=== PATIENT | female | born 1965 | race Caucasian/White ===

== ENCOUNTER → 2017-07-17 | Outpatient (CLI) | payer OTHER ==
[~2017-07-17] MED LIST: CHOL100014 PO; CHRO400T6 PO; FAMC125T PO; LISI-167 PO; MULT-516 PO; VILA10TA PO; VITAMIN C PO
== END | disposition home or self-care (01) ==
LOC: CFH 13:33
PROVIDERS: ATTEND Internal Medicine
DX: I25.10 Atherosclerotic heart disease of native coronary artery without angina pectoris (principal); J84.10 Pulmonary fibrosis, unspecified; Z82.49 Family history of ischemic heart disease and other diseases of the circulatory system
CPT/HCPCS: 75571

== ENCOUNTER → 2018-09-09 | Outpatient (CLI) | payer BC | END | disposition home or self-care (01) | LOC: CFH 11:06 | PROVIDERS: ATTEND Obstetrics & Gynecology Gynecology | DX: Z12.31 Encounter for screening mammogram for malignant neoplasm of breast (principal) | CPT/HCPCS: 77063; 77067 ==

== ENCOUNTER 2019-12-14 09:56 | Emergency (ER) | payer BC ==
[~2019-12-14] VITALS: Ht 167.6 cm; Wt 77.8 kg
[~2019-12-14 09:56] MED LIST changes: -FAMC125T PO; +FAMC125T3 PO
[2019-12-14] MEDS ORDERED: CEFTRIAXONE PMX 1GM/50ML 50 ML ONE (11:22)
[2019-12-14] MEDS ORDERED: SODIUM CHLORIDE FLUSH 10ML SYR IVF ONE (11:30)
[2019-12-14] MEDS ORDERED: CEFTRIAXONE PMX 1GM/50ML 50 ML IVPB ONE (11:30)
[2019-12-14 11:44] LABS: BASOPHILS # (AUTO) 0.04 x10^3/uL (0-0.1); BASOPHILS % (AUTO) 0 % (0-1); EOSINOPHILS # (AUTO) 0.12 x10^3/uL (0-0.4); EOSINOPHILS % (AUTO) 1 % (1-7); LYMPHOCYTES % (AUTO) 14 % (22-44); MD NO; MEAN CORPUSCULAR HEMOGLOBIN 30.8 pg (27.0-34.8); MEAN PLATELET VOLUME 8.6 fL (7.4-10.4); MONOCYTES # (AUTO) 0.84 x10^3/uL (0.2-0.8); MONOCYTES % (AUTO) 8 % (2-9); NEUTROPHILS # (AUTO) 8.69 x10^3/uL (1.8-6.8); NEUTROPHILS % (AUTO) 77 % (42-75); PLATELET COUNT 275 x10^3/uL (130-400); RED BLOOD COUNT 4.48 x10^6/uL (3.82-5.3); RED CELL DISTRIBUTION WIDTH 13.3 % (9.6-15.2)
[2019-12-14 11:46] LABS: ALANINE AMINOTRANSFERASE 29 U/L (12-78); ALBUMIN 3.1 g/dL (3.4-5.0); ANION GAP 6 mmol/L (5-15); CALCIUM 8.3 mg/dL (8.5-10.1); CHLORIDE 101 mmol/L (98-107); CREATININE 0.79 mg/dL (0.55-1.02)
[2019-12-14 11:48] LABS: ALKALINE PHOSPHATASE 79 U/L (45-117); BILIRUBIN,TOTAL 0.6 mg/dL (0.2-1.0); TOTAL PROTEIN 7.4 g/dL (6.4-8.2)
[2019-12-14] MEDS ORDERED: POTASSIUM CHLORIDE 20 MEQ TAB.ER.PRT ONE (12:25)
[2019-12-14] MEDS ORDERED: POTASSIUM CHLORIDE 20 MEQ TAB.ER.PRT PO ONE (12:30)
[2019-12-14 12:36] VITALS: BP 123/74
--- NOTE | 2019-12-14 12:36 | NUR ---
PT AMBUALTED TO BATHROOM
[2019-12-14 12:45] LABS: MICROSCOPIC INDICATED
--- NOTE | 2019-12-14 12:56 | NUR ---
PT TO CT AT THIS TIME
[2019-12-14] MEDS ORDERED: OMNIPAQUE 350 MG/ML, 100ML BOTTLE ONE (13:06)
--- NOTE | 2019-12-14 13:20 | NUR ---
PT EDUCATED ON PLAN OF CARE AT THIS TIME BY .
[2019-12-14] MEDS ORDERED: CEFOTETAN PMX 1GM/50ML 50 ML IV ONE (13:30)
[2019-12-14] MEDS ORDERED: BUPIVACAINE/PF-EPI 0.5% 1:200K ONE (13:42)
[2019-12-14] MEDS ORDERED: MIDAZOLAM 1 MG/ML, 2ML ONE (13:55)
[2019-12-14] MEDS ORDERED: FENTANYL PF 1000 MCG/20ML ONE (13:55)
[2019-12-14] MEDS ORDERED: FENTANYL PF 100 MCG/2ML ONE ×3 (13:56→15:42)
[2019-12-14] MEDS ORDERED: SUCCINYLCHOLINE 20 MG/ML, 10ML ONE ×2 (13:57)
[2019-12-14] MEDS ORDERED: PROPOFOL 10 MG/ML, 20ML ONE ×2 (13:58)
[2019-12-14] MEDS ORDERED: ROCURONIUM 10MG/ML,5ML ONE (13:59)
[2019-12-14] MEDS ORDERED: FENTANYL PF 100 MCG/2ML IV PRN (14:00)
[2019-12-14] MEDS ORDERED: ACETAMINOPHEN 325 MG TABLET PO PRN (14:00)
[2019-12-14] MEDS ORDERED: OXYcodone 5 MG/5 ML ORAL.SOL UDC PO PRN (14:00)
[2019-12-14] MEDS ORDERED: HYDROmorphone 1 MG/ML, 1ML INJ IVPush PRN (14:00)
[2019-12-14] MEDS ORDERED: PROMETHAZINE 25 MG/ML, 1ML IVPush PRN (14:00)
[2019-12-14] MEDS ORDERED: GLYCOPYRROLATE 0.2MG/1ML, 5ML ONE (14:22)
[2019-12-14] MEDS ORDERED: ONDANSETRON 2MG/ML, 2ML ONE (14:22)
[2019-12-14] MEDS ORDERED: CEFAZOLIN 1,000 MG ONE ×2 (14:28)
[2019-12-14] MEDS ORDERED: SUGAMMADEX 200 MG/2 ML IVPush ONE (14:50)
[2019-12-14] MEDS ORDERED: ACETAMINOPHEN 325 MG TABLET ONE (15:42)
[2019-12-14] MEDS ORDERED: HYDR-3240 PO (16:47)
== END 2019-12-14 17:12 | disposition home or self-care (01) ==
LOC: ED 10:49 → EDIP 13:17 → UNDOADMIN 13:17
DX: K35.30 Acute appendicitis with localized peritonitis, without perforation or gangrene (principal); N39.0 Urinary tract infection, site not specified; R10.31 Right lower quadrant pain; R10.32 Left lower quadrant pain
CPT/HCPCS: 36415; 44970; 74177; 80053; 81001; 83605; 85025; 87040; 88304; 96365; 96375; 99285; J0330; J0696; J2250; J2405; J2704; J3010; J3490; Q9967; J0690

== ENCOUNTER → 2020-05-20 | Outpatient (CLI) | payer BC ==
[~2020-05-20] MED LIST changes: +HYDR-3240 PO
== END | disposition home or self-care (01) ==
LOC: CFH 07:15
PROVIDERS: ATTEND Obstetrics & Gynecology Gynecology
DX: N60.02 Solitary cyst of left breast (principal); R92.1 Mammographic calcification found on diagnostic imaging of breast
CPT/HCPCS: 76642; 77066; G0279